=== PATIENT | male | born 1990 | race Caucasian/White ===

== ENCOUNTER 2017-09-17 16:17 | Emergency (ER) | payer SELFPAY ==
[2017-09-17] VITALS (7 sets, daily range): BP systolic 135–161; BP diastolic 76–104; PULSE 78–86; RESP 16–20; TEMP 97.3; O2SAT 98–100
[~2017-09-17] VITALS: Ht 172.7 cm; Wt 77.0 kg
--- NOTE | 2017-09-17 16:23 | PD ---
HPI Chief Complaint: chest pain Time Seen by Provider: 16:19 Travel History International Travel<30 days: No Contact w/Intl Traveler<30days: No Traveled to known affect area: No History of Present Illness HPI 27-year-old male here by ambulance for evaluation of chest pain and palpitations. Patient reports that the symptoms started last night. He reports that he punched himself in the left chest, and afterwards began having pain. He also smoked marijuana which she believed was laced with amphetamines, making his pain worse. Pain is 8 out of 10, described as palpitations and slight pressure. He has a tingling in his proximal left arm. No known history of cardiac disease. No history of DVT or PE. No family history of cardiac disease. He reports that 3 months ago he was hospitalized at [facility] after breaking his left knee and proximal tibia requiring surgery. He has had a cough productive of yellowish sputum. No hemoptysis. No fevers or chills. No dyspnea. Pain is worse with palpation of his left chest as well as exertion. States he used IV drugs once several years ago. He reports that he takes aspirin for his left knee injury. [facility] Social History Tobacco Use: Yes Substance Use: Yes Allergies-Medications (Allergen,Severity, Reaction): Coded Allergies: No Known Allergies (Unverified , 09/17/17) Reported Meds & Prescriptions Reported Meds & Active Scripts Active Naproxen 500 Mg Tab 500 Mg PO BID 10 Days Review of Systems Except as stated in HPI: all other systems reviewed are Neg Physical Exam Narrative GENERAL: Well-developed, well-nourished, comfortable, no apparent distress. SKIN: Focused skin assessment warm/dry. No rash. HEAD: Atraumatic. Normocephalic. EYES: Pupils equal and round. No scleral icterus. No injection or drainage. ENT: No nasal bleeding or discharge. Mucous membranes pink and moist. NECK: Trachea midline. No JVD. CARDIOVASCULAR: Regular rate and rhythm. No murmur appreciated. Distal pulses brisk and equal bilaterally. RESPIRATORY: No accessory muscle use. Clear to auscultation. Breath sounds equal bilaterally. GASTROINTESTINAL: Abdomen soft, non-tender, nondistended. MUSCULOSKELETAL: No obvious deformities. No clubbing. No cyanosis. No edema. Bilateral calves are supple, nontender. Mild left anterior chest wall tenderness without crepitus, without step-off, without paradoxical chest wall movements. NEUROLOGICAL: Awake and alert. No obvious cranial nerve deficits. Motor grossly within normal limits. Normal speech. PSYCHIATRIC: Appropriate mood and affect; insight and judgment normal. Data Data Last Documented VS Vital Signs Date Time Temp Pulse Resp B/P (MAP) Pulse Ox O2 Delivery O2 Flow Rate FiO2 09/17/17 20:32 140/76 (97) 09/17/17 19:05 78 16 100 Room Air 09/17/17 16:21 97.3 Orders Orders Drug Screen, Random Urine (09/17/17 16:19) Ckmb (Isoenzyme) Profile (09/17/17 16:19) Complete Blood Count With Diff (09/17/17 16:19) Comprehensive Metabolic Panel (09/17/17 16:19) D-Dimer (09/17/17 16:19) Magnesium (Mg) (09/17/17 16:19) Prothrombin Time / Inr (Pt) (09/17/17 16:19) Act Partial Throm Time (Ptt) (09/17/17 16:19) Troponin I (09/17/17 16:19) Chest, Single Ap (09/17/17 16:19) Ecg Monitoring (09/17/17 16:19) Bilateral Bp Monitoring (09/17/17 16:19) Iv Access Insert/Monitor (09/17/17 16:19) Oximetry (09/17/17 16:19) Sodium Chloride 0.9% Flush (Ns Flush) (09/17/17 16:30) Ketorolac Inj (Toradol Inj) (09/17/17 16:30) Sodium Chlor 0.9% 1000 Ml Inj (Ns 1000 M (09/17/17 16:30) Potassium Chloride (Kcl) (09/17/17 17:30) Ct Pulmonary Angiogram (09/17/17 17:53) Iohexol 350 Inj (Omnipaque 350 Inj) (09/17/17 18:47) Troponin I (09/17/17 19:28) Electrocardiogram (09/17/17 ) Electrocardiogram (09/17/17 16:16) Ed Discharge Order (09/17/17 20:17) Labs Laboratory Tests Test 09/17/17 16:43 09/17/17 17:30 09/17/17 19:35 White Blood Count 7.9 TH/MM3 Red Blood Count 4.96 MIL/MM3 Hemoglobin 13.8 GM/DL Hematocrit 42.9 % Mean Corpuscular Volume 86.5 FL Mean Corpuscular Hemoglobin 27.8 PG Mean Corpuscular Hemoglobin Concent 32.1 % Red Cell Distribution Width 12.7 % Platelet Count 221 TH/MM3 Mean Platelet Volume 8.5 FL Neutrophils (%) (Auto) 75.7 % Lymphocytes (%) (Auto) 15.2 % Monocytes (%) (Auto) 6.6 % Eosinophils (%) (Auto) 1.3 % Basophils (%) (Auto) 1.2 % Neutrophils # (Auto) 6.0 TH/MM3 Lymphocytes # (Auto) 1.2 TH/MM3 Monocytes # (Auto) 0.5 TH/MM3 Eosinophils # (Auto) 0.1 TH/MM3 Basophils # (Auto) 0.1 TH/MM3 CBC Comment DIFF FINAL Differential Comment Prothrombin Time 11.3 SEC Prothromb Time International Ratio 1.1 RATIO Activated Partial Thromboplast Time 24.5 SEC D-Dimer Quantitative (PE/DVT) 0.61 MG/L FEU Blood Urea Nitrogen 3 MG/DL Creatinine 0.78 MG/DL Random Glucose 124 MG/DL Total Protein 7.6 GM/DL Albumin 3.7 GM/DL Calcium Level 9.2 MG/DL Magnesium Level 2.2 MG/DL Alkaline Phosphatase 105 U/L Aspartate Amino Transf (AST/SGOT) 22 U/L Alanine Aminotransferase (ALT/SGPT) 101 U/L Total Bilirubin 0.5 MG/DL Sodium Level 140 MEQ/L Potassium Level 3.2 MEQ/L Chloride Level 105 MEQ/L Carbon Dioxide Level 29.9 MEQ/L Anion Gap 5 MEQ/L Estimat Glomerular Filtration Rate 119 ML/MIN Total Creatine Kinase 28 U/L Troponin I LESS THAN 0.02 NG/ML LESS THAN 0.02 NG/ML Urine Opiates Screen NEG Urine Barbiturates Screen NEG Urine Amphetamines Screen POS Urine Benzodiazepines Screen NEG Urine Cocaine Screen NEG Urine Cannabinoids Screen NEG [facility] Medical Decision Making Medical Screen Exam Complete: Yes Emergency Medical Condition: Yes Interpretation(s) EKG: Sinus, rate 93, borderline right axis deviation, nonspecific T-wave abnormality, no ST segment abnormality Differential Diagnosis Musculoskeletal chest wall pain, ACS, pneumothorax, pericarditis, PE, pneumonia, Narrative Course Initial vital signs show heart rate 79, blood pressure 151/96, pulse ox 100% on room air, oral temp of 97.3F. CBC is unremarkable. CMP is remarkable for potassium 3.2 which was replaced orally, ALT 101, otherwise unremarkable. Cardiac enzymes are negative. D-dimer is subtly positive active 0.61. CT pulmonary angiogram will be ordered to rule out PE. Intravenous positive for amphetamines. Chest x-ray shows no acute disease. CT pulmonary angiogram is negative for PE. Repeat EKG 3 hours after the first is unchanged, no acute ischemic abnormalities. Repeat troponin 3 hours after the first is also negative. I do not believe the patient's chest pain is cardiac in nature. He describes palpitations as well as a cramping to his left chest that is reproducible with palpation. Pain improved with Toradol. Pain is more likely musculoskeletal in nature. I believe he is stable for discharge home with outpatient follow-up with a primary care physician this week. He was advised on when to return to the emergency department. He verbalizes understanding and agreement with plan. Diagnosis Primary Impression: Atypical chest pain Additional Impression: Palpitations Referrals: [facility] 3 days Primary Care Physician 3 days Additional Instructions: Follow-up with a primary care physician this week. Return to the emergency department for worsening symptoms or any other concerns. Scripts Naproxen (Naproxen) 500 Mg Tab 500 MG PO BID for 10 Days, #20 TAB 0 Refills Prov: Matt Wheatley MD 09/17/17 Disposition: 01 DISCHARGE HOME Condition: Stable Matt Wheatley MD Sep 17, 2017 16:23
[2017-09-17] MEDS ORDERED: SODIUM CHLOR 0.9% 1000 ML INJ 1,000 ML IV ONE (16:30)
[2017-09-17] MEDS ORDERED: KETOROLAC TROMETHAMINE 30 MG/ML (IVP) VIAL IV PUSH ONE (16:30)
[2017-09-17] MEDS ORDERED: SODIUM CHLORIDE 0.9% FLUSH 10 ML FLUSH IVF PRN (16:30)
[2017-09-17 17:12] LABS: BASOPHIL # 0.1 TH/MM3 (0-0.2); BASOPHIL % 1.2 % (0.0-2.0); EOSINOPHIL # 0.1 TH/MM3 (0-0.4); EOSINOPHIL % 1.3 % (0.0-4.0); HEMATOCRIT 42.9 % (39.0-51.0); HEMOGLOBIN 13.8 GM/DL (13.0-17.0); LYMPH % 15.2 % (9.0-44.0); LYMPHOCYTE # 1.2 TH/MM3 (1.0-4.8); MEAN CELL VOLUME 86.5 FL (80.0-100.0); MEAN CORPUSCULAR HEMOGLOBIN 27.8 PG (27.0-34.0); MEAN CORPUSCULAR HGB CONC 32.1 % (32.0-36.0); MEAN PLATELET VOLUME 8.5 FL (7.0-11.0); MONO % 6.6 % (0.0-8.0); MONOCYTE # 0.5 TH/MM3 (0-0.9); NEUT % 75.7 % (16.0-70.0); PLATELET COUNT 221 TH/MM3 (150-450); RED BLOOD COUNT 4.96 MIL/MM3 (4.50-5.90); RED CELL DISTRIBUTION WIDTH 12.7 % (11.6-17.2); WHITE BLOOD COUNT 7.9 TH/MM3 (4.0-11.0)
[2017-09-17 17:20] LABS: CHLORIDE 105 MEQ/L (98-107); SODIUM (NA) 140 MEQ/L (136-145)
[2017-09-17 17:23] LABS: ALBUMIN 3.7 GM/DL (3.4-5.0); BICARBONATE 29.9 MEQ/L (21.0-32.0); BLOOD UREA NITROGEN 3 MG/DL (7-18); CALCIUM 9.2 MG/DL (8.5-10.1); GLUCOSE,RANDOM 124 MG/DL (74-106); MAGNESIUM 2.2 MG/DL (1.5-2.5)
--- NOTE | 2017-09-17 17:23 | RADRPT ---
EXAM DATE/TIME: 09/17/2017 17:05 [facility] COMPARISON: No previous studies available for comparison. INDICATIONS : Chest pain for 2 days. MEDICAL HISTORY : None. SURGICAL HISTORY : None. ENCOUNTER: Initial ACUITY: 2 days PAIN SCORE: 7/10 LOCATION: Bilateral chest FINDINGS: A single view of the chest demonstrates the lungs to be symmetrically aerated without evidence of mas s, infiltrate or effusion. The cardiomediastinal contours are unremarkable. Osseous structures are intact. CONCLUSION: Normal examination. Fco Guerrero Jr., MD on September 17, 2017 at 17:16 Board Certified Radiologist. This report was verified electronically.
[2017-09-17 17:26] LABS: ALT (GPT) 101 U/L (12-78); AST (GOT) 22 U/L (15-37); CREATININE 0.78 MG/DL (0.60-1.30); GLOMERULAR FILTRATION RATE 119 ML/MIN (>89)
[2017-09-17 17:28] LABS: TOTAL BILIRUBIN ADULT 0.5 MG/DL (0.2-1.0); TOTAL PROTEIN 7.6 GM/DL (6.4-8.2)
[2017-09-17 17:29] LABS: ALKALINE PHOSPHATASE 105 U/L (45-117)
[2017-09-17] MEDS ORDERED: POTASSIUM CHLORIDE 20 MEQ CONTROLLED RELEASE TAB PO ONE (17:30)
[2017-09-17 17:31] LABS: TROPONIN I LESS THAN 0.02 NG/ML (0.02-0.05)
[2017-09-17 17:39] LABS: INTERNATIONAL NORMALIZED RATIO 1.1 RATIO; PROTHROMBIN TIME - PATIENT 11.3 SEC (9.8-11.6)
[2017-09-17 17:41] LABS: D-DIMER 0.61 MG/L FEU (0.00-0.50)
[2017-09-17] MEDS ORDERED: IOHEXOL 350 MG/ML 10 ML VIAL (for RAD DIAG) IVCONTRAST ONE (18:47)
--- NOTE | 2017-09-17 19:17 | RADRPT ---
EXAM DATE/TIME: 09/17/2017 18:37 [facility] COMPARISON: No previous studies available for comparison. INDICATIONS : Bilateral chest pain. Evaluate for embolism. IV CONTRAST: 65 cc Omnipaque 350 (iohexol) IV RADIATION DOSE: 11.72 CTDIvol (mGy) MEDICAL HISTORY : None SURGICAL HISTORY : None. ENCOUNTER: Initial ACUITY: 1 day PAIN SCALE: 6/10 LOCATION: Bilateral chest TECHNIQUE: Volumetric scanning of the chest was performed using a pulmonary embolism protocol MIP images were re constructed. Using automated exposure control and adjustment of the mA and/or kV according to patien t size, radiation dose was kept as low as reasonably achievable to obtain optimal diagnostic quality images. DICOM format image data is available electronically for review and comparison. Follow-up recommendations for detected pulmonary nodules are based at a minimum on nodule size and pa tient risk factors according to Fleischner Society Guidelines. FINDINGS: PULMONARY ARTERIES: No filling defects are seen in the pulmonary arteries through the segmental level. LUNGS: There is no consolidation or pneumothorax . No concerning pulmonary nodule is visualized. PLEURAE: There is no pleural thickening or pleural effusion. MEDIASTINUM: There is good visualization of the great vessels of the middle mediastinum. No evidence of mediastin al or hilar adenopathy/mass. CONCLUSION: The study is negative for pulmonary embolism. Fco Mederos MD on September 17, 2017 at 19:14 Board Certified Radiologist. This report was verified electronically.
[2017-09-17] MEDS ORDERED: NAPR500T2 PO (20:16)
--- NOTE | 2017-09-17 20:43 | EKG ---
Date Performed: 09/17/2017 Time Performed: 19:37:11 PTAGE: 27 years EKG: Baseline artifact present Sinus rhythm BORDERLINE RIGHT AXIS DEVIATION BORDERLINE ECG INTERPRETATION BASED ON A DEFAULT AGE OF 39 YEARS No significant change from prior electrocardiogram. PREVIOUS TRACING : 09/17/2017 16.16 DOCTOR: Ajay Lei Interpretating Date/Time 09/17/2017 20:42:12
--- NOTE | 2017-09-17 20:52 | EKG ---
Date Performed: 09/17/2017 Time Performed: 16:16:18 PTAGE: 27 years EKG: Sinus rhythm WITH SINUS ARRHYTHMIA BORDERLINE RIGHT AXIS DEVIATION NONSPECIFIC T-WAVE ABNORMALITY BORDERLINE ECG NO PREVIOUS TRACING DOCTOR: Ajay Lei Interpretating Date/Time 09/17/2017 20:50:46
== END 2017-09-17 20:34 | disposition home or self-care (01) ==
LOC: PHED 16:17
DX: R07.89 Other chest pain (principal); R00.2 Palpitations; R94.31 Abnormal electrocardiogram [ECG] [EKG]; F15.90 Other stimulant use, unspecified, uncomplicated; Z79.82 Long term (current) use of aspirin; Z72.0 Tobacco use
CPT/HCPCS: 71010; 71275; 80053; 80307; 82550; 83735; 84484; 85025; 85379; 85610; 85730; 93005; 96361; 96374; 99285; J1885; J7030; Q9967